=== PATIENT | female | born 1995 | race Caucasian/White ===

== ENCOUNTER 2019-11-04 10:05 | Emergency (ER) | payer OTHER ==
[~2019-11-04] VITALS: Ht 162.6 cm; Wt 52.0 kg
[2019-11-04 10:05] VITALS: BP 98/46
[2019-11-04] MEDS ORDERED: predniSONE 10 MG TABLET PO ONE (11:00)
[2019-11-04] MEDS ORDERED: CYCLOBENZAPRINE 10 MG TABLET. PO ONE (11:00)
[2019-11-04 11:12] LABS: U PREG PATIENT NEGATIVE (NEG)
[2019-11-04 11:14] LABS: BILIRUBIN,URINE NEG (NEG); CLARITY,URINE HAZY; COLOR,URINE YELLOW; GLUCOSE,URINE NEG (NEG)
[2019-11-04 11:15] LABS: BACTERIA,URINE FEW /HPF (0-FEW); NITRITE,URINE NEG (NEG); SQUAMOUS EPITHELIAL CELL,UR MOD /LPF
--- NOTE | 2019-11-04 11:33 | RAD ---
THORACOLUMBAR 2V History: Fall. Pain. Technique: 2 views of the thoracolumbar spine. Comparison: None. Findings: Normal vertebral body height and alignment. No fracture. Impression: 1. No acute osseous abnormality. Electronically signed by: Beau Vásquez DO (11/04/2019 11:30 AM) [id number]
[2019-11-04] MEDS ORDERED: CYCL-331 PO (11:55)
[2019-11-04] MEDS ORDERED: HYDR-3165 PO (11:55)
[2019-11-04] MEDS ORDERED: PRED50TA PO (11:55)
--- NOTE | 2019-11-04 11:55 | PHYS DOC ---
Past History Past Medical History: Other Additional Past Medical Histor: miscarriage, ectopic Past Surgical History: , Other Additional Past Surgical Histo: D&C, Alcohol Use: Occasionally Adult General Chief Complaint Chief Complaint: MECHANICAL FALL HPI HPI Patient is a [age] year old [sex] who presents with [] Review of Systems Review of Systems Constitutional: Denies fever or chills [] Eyes: Denies change in visual acuity, redness, or eye pain [] HENT: Denies nasal congestion or sore throat [] Respiratory: Denies cough or shortness of breath [] Cardiovascular: No additional information not addressed in HPI [] GI: Denies abdominal pain, nausea, vomiting, bloody stools or diarrhea [] : Denies dysuria or hematuria [] Musculoskeletal: Denies back pain or joint pain [] Integument: Denies rash or skin lesions [] Neurologic: Denies headache, focal weakness or sensory changes [] Endocrine: Denies polyuria or polydipsia [] All other systems were reviewed and found to be within normal limits, except as documented in this note. Current Medications Current Medications Current Medications Medications (Trade) Dose Ordered Sig/[place] Start Time Stop Time Status Last Admin Dose Admin Cyclobenzaprine HCl (Flexeril) 10 mg 1X ONCE 11/04/19 11:00 11/04/19 11:01 DC 11/04/19 11:18 10 MG Prednisone (Prednisone) 50 mg 1X ONCE 11/04/19 11:00 11/04/19 11:01 DC 11/04/19 11:18 50 MG Allergies Allergies Allergies Coded Allergies Type Severity Reaction Last Updated Verified No Known Drug Allergies 11/04/19 No Physical Exam Physical Exam Constitutional: Well developed, well nourished, no acute distress, non-toxic appearance. [] HENT: Normocephalic, atraumatic, bilateral external ears normal, oropharynx moist, no oral exudates, nose normal. [] Eyes: PERRLA, EOMI, conjunctiva normal, no discharge. [] Neck: Normal range of motion, no tenderness, supple, no stridor. [] Cardiovascular:Heart rate regular rhythm, no murmur [] Lungs & Thorax: Bilateral breath sounds clear to auscultation [] Abdomen: Bowel sounds normal, soft, no tenderness, no masses, no pulsatile masses. [] Skin: Warm, dry, no erythema, no rash. [] Back: No tenderness, no CVA tenderness. [] Extremities: No tenderness, no cyanosis, no clubbing, ROM intact, no edema. [] Neurologic: Alert and oriented X 3, normal motor function, normal sensory function, no focal deficits noted. [] Psychologic: Affect normal, judgement normal, mood normal. [] Current Patient Data Vital Signs Vital Signs Date Time Temp Pulse Resp B/P (MAP) Pulse Ox O2 Delivery O2 Flow Rate FiO2 11/04/19 10:05 98.8 69 16 98/46 (63) 98 Room Air Lab Results Laboratory Tests Test 11/04/19 10:35 Urine Collection Type Unknown Urine Color Yellow Urine Clarity Hazy Urine pH 7.0 Urine Specific [place] 1.020 Urine Protein Trace (NEG-TRACE) Urine Glucose (UA) Neg mg/dL (NEG) Urine Ketones (Stick) Neg mg/dL (NEG) Urine Blood Trace (NEG) Urine Nitrite Neg (NEG) Urine Bilirubin Neg (NEG) Urine Urobilinogen Dipstick 1.0 mg/dL (0.2 mg/dL) Urine Leukocyte Esterase Neg (NEG) Urine RBC 1-2 /HPF (0-2) Urine WBC 1-4 /HPF (0-4) Urine Squamous Epithelial Cells Mod /LPF Urine Bacteria Few /HPF (0-FEW) Urine Mucus Slight /LPF Urine Test Negative (NEG) EKG EKG [] Radiology/Procedures Radiology/Procedures [] Impressions: THORACOLUMBAR 2V History: Fall. Pain. Technique: 2 views of the thoracolumbar spine. Comparison: None. Findings: Normal vertebral body height and alignment. No fracture. Impression: 1. No acute osseous abnormality. Electronically signed by: Raghavendra Morgan DO (11/04/2019 11:30 AM) [id number] DICTATED AND SIGNED BY: RAGHAVENDRA MORGAN DO DATE: 11/04/19 1130 CC: JAMIA WANG DO; PCP,NO ~ Course & Med Decision Making Course & Med Decision Making Pertinent Labs and Imaging studies reviewed. (See chart for details) The patient's extremity is negative for acute findings. Her urinalysis is unremarkable. 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 I will treat her with [place] 5/325, prednisone 50 mg daily for 3 days, and Flexeril. She is stable for discharge at this time. [] Dragon Disclaimer Dragon Disclaimer This electronic medical record was generated, in whole or in part, using a voice recognition dictation system. Departure Departure: Impression: Primary Impression: Sacroiliac joint dysfunction of both sides Disposition: HOME, SELF-CARE Condition: STABLE Referrals: PCP,NO (PCP) Patient Instructions: Sacroiliac Joint Dysfunction Scripts Prednisone (PREDNISONE) 50 Mg Tablet 1 TAB PO DAILY for low back pain for 3 Days, #3 TAB Prov: JAMIA WANG DO 11/04/19 Hydrocodone Bit/Acetaminophen (NOR[place] 5-325 TABLET) 1 Each Tablet 1 TAB PO PRN Q6HRS PRN for PAIN, #10 TAB 0 Refills Prov: JAMIA WANG DO 11/04/19 Cyclobenzaprine Hcl (CYCLOBENZAPRINE HCL) 10 Mg Tablet 1 TAB PO TID PRN for MUSCLE SPASMS, #30 TAB Prov: JAMIA WANG DO 11/04/19 JAMIA WANG DO Nov 04, 2019 11:55
[2019-11-04] MEDS ORDERED: HYDROcodone/APAP 5/325MG 1 TAB TABLET PO ONE ×2 (12:15)
== END 2019-11-04 12:11 | disposition home or self-care (01) ==
LOC: ER 10:05
DX: M53.3 Sacrococcygeal disorders, not elsewhere classified (principal); W18.39XA Other fall on same level, initial encounter; Y93.89 Activity, other specified; Y92.89 Other specified places as the place of occurrence of the external cause; Y99.8 Other external cause status
CPT/HCPCS: 72080; 81001; 81025; 99285; J7512